=== PATIENT | female | born 1950 | race Caucasian/White ===

== ENCOUNTER 2017-02-12 16:21 | Inpatient (IN) | payer MEDICAID ==
[~2017-02-12] VITALS: Ht 165.1 cm; Wt 75.8 kg
[~2017-02-12 16:21] MED LIST: ASPI-1132 PO; BIMA12.5OS OP; CIP250 PO; COMB5OS OP; LISI-662 PO; METF500T4 PO; PROP40TA7 PO; RISP2 PO; SIMV-260 PO; TRAZ-144 PO; VITA400C19 PO
[2017-02-12] MEDS ORDERED: LISI1TAB11 PO (16:44)
[2017-02-12] MEDS ORDERED: RANI150T7 PO (16:44)
[2017-02-12] MEDS ORDERED: SERT100T12 PO (16:44)
[2017-02-12] MEDS ORDERED: QUET100T PO (16:44)
[2017-02-12] MEDS ORDERED: BENZ1TAB10 PO (16:44)
[2017-02-12] MEDS ORDERED: NIFE60TA71 PO (16:44)
[2017-02-12 16:47] LABS: GLUCOSE,POINT OF CARE 122 MG/DL (70-110)
[2017-02-12 17:34] LABS: ANION GAP 11 mmol/L (8-16); CALCIUM, TOTAL 9.7 mg/dL (8.8-10.5); CARBON DIOXIDE 25 mmol/L (22-29); CHLORIDE 92 mmol/L (98-107); GLOMERULAR FILTR. RATE CALC > 60 mL/min (>60); POTASSIUM 4.1 mmol/L (3.5-5.1); SODIUM SERUM 128 mmol/L (136-145); UREA NITROGEN, BLOOD 12 mg/dL (7-18)
[2017-02-12 17:40] LABS: ALANINE AMINOTRANSFERASE 16 U/L (12-78); ALBUMIN 4.5 g/dL (3.4-5.0); ASPARTATE AMINOTRANSFERASE 11 U/L (15-37); BILIRUBIN,TOTAL 0.3 mg/dL (0.1-1.0); TOTAL PROTEIN, SERUM 7.9 g/dL (6.4-8.2)
[2017-02-12 18:20] LABS: BASOPHILS % (AUTO) 0.3 % (0.0-2.0); EOSINOPHILS % (AUTO) 0.3 % (1.0-6.0); HEMATOCRIT 34.3 % (36-46); HEMOGLOBIN 11.5 g/dL (12.0-16.0); LYMPHOCYTES # (AUTO) 1.8 K/uL (1.0-4.8); LYMPHOCYTES % (AUTO) 27.9 % (22.0-44.0); MEAN CORPUSCULAR HEMOGLOBIN 31.1 pg (26.0-34.0); MEAN CORPUSCULAR HGB CONC 33.6 G/dL (31.0-37.0); MEAN CORPUSCULAR VOLUME 93 fL (80-100); MONOCYTES # (AUTO) 0.5 K/uL (0.1-1.0); MONOCYTES % (AUTO) 7.1 % (2.0-9.0); NEUTROPHILS # (AUTO) 4.1 K/uL (1.8-7.7); NEUTROPHILS % (AUTO) 64.4 % (40.0-70.0); PLATELET COUNT (AUTO) 249 K/uL (150-450); RED CELL DISTRIBUTION WIDTH 14.2 % (11.5-14.5); WHITE BLOOD COUNT (AUTO) 6.3 K/uL (4.5-11.0)
[2017-02-12] MEDS ORDERED: SODIUM CHLORIDE 1 GM TABLET PO ONE (20:30)
[2017-02-12 20:48] LABS: SALICYLATE 1.4 mg/dL (2.8-20.0)
[2017-02-12 20:54] LABS: ACETAMINOPHEN < 2 mcg/mL (10-30)
[2017-02-13 03:28] VITALS: BP 145/86
[2017-02-13] MEDS ORDERED: INFLUENZA VIRUS VACCINE QVS 2017-18 (3YR+)/PF 60 MCG/0.5 ML SYRINGE IM ONE (03:45)
[2017-02-13 05:52] LABS: GLUCOSE,POINT OF CARE 121 MG/DL (70-110)
[2017-02-13] MEDS ORDERED: ALBUTEROL SULFATE HFA 90 MCG/PUFF 8 GM INHALER IH PRN (07:30)
[2017-02-13] MEDS ORDERED: ACETAMINOPHEN 325 MG TABLET PO PRN (07:30)
[2017-02-13] MEDS ORDERED: PETROLATUM,WHITE 71 GM JELLY TP PRN (07:30)
[2017-02-13] MEDS ORDERED: ONDANSETRON HCL 4 MG TABLET PO PRN (07:30)
[2017-02-13] MEDS ORDERED: CloNIDine HCL 0.1 MG TABLET PO PRN (07:30)
[2017-02-13] MEDS ORDERED: BACITRACIN 28.4 GM OINTMENT TP PRN (07:30)
[2017-02-13] MEDS ORDERED: MAG HYDROX/AL HYDROX/SIMETH ES 30 ML SUSPENSION UDCUP PO PRN (07:30)
[2017-02-13] MEDS ORDERED: LOPERAMIDE HCL 2 MG CAPSULE PO PRN (07:30)
[2017-02-13] MEDS ORDERED: MAGNESIUM HYDROXIDE SUSPENSION 30 ML UDCUP PO PRN (07:30)
[2017-02-13] MEDS ORDERED: BENZOCAINE/MENTHOL LOZENGE [8 LOZENGES/PACKET] MM PRN (07:45)
[2017-02-13 08:47] VITALS: BP 111/78
[2017-02-13] MEDS: QUEtiapine FUMARATE 100 MG TABLET PO PRN ×2 (11:44→16:20)
[2017-02-13] MEDS: IBUPROFEN 600 MG TABLET PO PRN (11:44)
[2017-02-13 13:23] LABS: GLUCOSE,POINT OF CARE 140 MG/DL (70-110)
[2017-02-13] MEDS: LORazepam 2 MG TABLET PO PRN (16:14)
[2017-02-13] MEDS: QUEtiapine FUMARATE 200 MG TABLET PO SCH ×2 (20:27→21:41)
[2017-02-14 03:00] VITALS: BP 144/77
[2017-02-14] MEDS: LORazepam 2 MG TABLET PO PRN ×2 (03:10→08:58)
[2017-02-14] MEDS: QUEtiapine FUMARATE 100 MG TABLET PO PRN (03:10)
[2017-02-14 08:47] VITALS: BP 127/51
[2017-02-14 16:33] VITALS: BP 136/52
[2017-02-14] MEDS: MetFORMIN HCL 500 MG TABLET PO SCH (16:44)
[2017-02-14] MEDS: QUEtiapine FUMARATE 200 MG TABLET PO SCH (21:23)
[2017-02-15 02:00] VITALS: BP 138/79
[2017-02-15] MEDS: ZOLPIDEM TARTRATE 10 MG TABLET PO PRN (02:08)
[2017-02-15 06:12] LABS: GLUCOSE,POINT OF CARE 93 MG/DL (70-110)
[2017-02-15] MEDS: MetFORMIN HCL 500 MG TABLET PO SCH ×2 (06:47→17:22)
[2017-02-15] MEDS: FERROUS SULFATE 325 MG EC TABLET PO SCH ×2 (06:47→17:22)
[2017-02-15] MEDS: SODIUM CHLORIDE 1 GM TABLET PO SCH ×3 (10:21→16:19)
[2017-02-15 11:06] VITALS: BP 146/70
[2017-02-15 16:16] VITALS: BP 123/64
[2017-02-15] MEDS: QUEtiapine FUMARATE 100 MG TABLET PO PRN (16:19)
[2017-02-15] MEDS: QUEtiapine FUMARATE 200 MG TABLET PO SCH (20:35)
[2017-02-16] MEDS: MetFORMIN HCL 500 MG TABLET PO SCH ×2 (06:35→17:39)
[2017-02-16] MEDS: FERROUS SULFATE 325 MG EC TABLET PO SCH ×2 (06:35→17:38)
[2017-02-16 09:06] VITALS: BP 138/85
[2017-02-16 16:01] VITALS: BP 132/74
[2017-02-16] MEDS: QUEtiapine FUMARATE 200 MG TABLET PO SCH (19:58)
[2017-02-17 00:01] VITALS: BP 141/72
[2017-02-17] MEDS: QUEtiapine FUMARATE 100 MG TABLET PO PRN (00:02)
[2017-02-17 06:17] LABS: GLUCOSE,POINT OF CARE 117 MG/DL (70-110)
[2017-02-17] MEDS: FERROUS SULFATE 325 MG EC TABLET PO SCH ×2 (06:33→17:01)
[2017-02-17] MEDS: MetFORMIN HCL 500 MG TABLET PO SCH ×2 (06:33→17:01)
[2017-02-17] MEDS: LORazepam 2 MG TABLET PO PRN (09:29)
[2017-02-17 09:46] VITALS: BP 121/62
[2017-02-17 18:16] VITALS: BP 112/79
[2017-02-17 20:18] LABS: GLUCOSE,POINT OF CARE 91 MG/DL (70-110)
[2017-02-17] MEDS: QUEtiapine FUMARATE 200 MG TABLET PO SCH (21:13)
[2017-02-18 00:47] VITALS: BP 131/75
[2017-02-18] MEDS: QUEtiapine FUMARATE 100 MG TABLET PO PRN (00:56)
[2017-02-18 06:07] LABS: GLUCOSE COMMENT 1 Juice/Food/D50 Given; GLUCOSE,POINT OF CARE 151 MG/DL (70-110)
[2017-02-18] MEDS: MetFORMIN HCL 500 MG TABLET PO SCH ×2 (06:37→16:53)
[2017-02-18] MEDS: FERROUS SULFATE 325 MG EC TABLET PO SCH ×2 (06:37→16:53)
[2017-02-18] MEDS: QUEtiapine FUMARATE 100 MG TABLET PO SCH (08:26)
[2017-02-18 10:23] VITALS: BP 141/98
[2017-02-18 16:58] LABS: GLUCOSE COMMENT 1 Received Meds; GLUCOSE,POINT OF CARE 124 MG/DL (70-110)
[2017-02-18 17:00] VITALS: BP 128/76
[2017-02-18] MEDS: QUEtiapine FUMARATE 200 MG TABLET PO SCH (20:36)
[2017-02-19 00:40] VITALS: BP 152/100
[2017-02-19] MEDS: QUEtiapine FUMARATE 100 MG TABLET PO PRN (00:44)
[2017-02-19] MEDS: ZOLPIDEM TARTRATE 10 MG TABLET PO PRN (00:44)
[2017-02-19 06:07] LABS: GLUCOSE,POINT OF CARE 124 MG/DL (70-110)
[2017-02-19] MEDS: FERROUS SULFATE 325 MG EC TABLET PO SCH ×2 (06:58→17:39)
[2017-02-19] MEDS: MetFORMIN HCL 500 MG TABLET PO SCH ×2 (06:58→17:39)
[2017-02-19 08:58] VITALS: BP 123/97
[2017-02-19] MEDS: QUEtiapine FUMARATE 100 MG TABLET PO SCH (09:00)
[2017-02-19 16:05] VITALS: BP 151/114
[2017-02-19 17:23] LABS: GLUCOSE,POINT OF CARE 145 MG/DL (70-110)
[2017-02-19] MEDS: QUEtiapine FUMARATE 200 MG TABLET PO SCH (20:40)
[2017-02-19 23:55] VITALS: BP 130/78
[2017-02-20] MEDS: ZOLPIDEM TARTRATE 10 MG TABLET PO PRN (00:01)
[2017-02-20] MEDS: LORazepam 2 MG TABLET PO PRN (00:01)
[2017-02-20] MEDS ORDERED: DEXTROSE 50%-WATER 25 GM/50 ML SYRINGE IVP PRN (05:00)
[2017-02-20 05:48] LABS: GLUCOSE,POINT OF CARE 82 MG/DL (70-110)
[2017-02-20 06:48] VITALS: BP 137/80
[2017-02-20] MEDS: INSULIN ASPART 100 UNITS/ML SQ PRN (06:55)
[2017-02-20] MEDS: FERROUS SULFATE 325 MG EC TABLET PO SCH ×2 (07:03→17:41)
[2017-02-20] MEDS: MetFORMIN HCL 500 MG TABLET PO SCH ×2 (07:03→17:41)
[2017-02-20] MEDS: QUEtiapine FUMARATE 100 MG TABLET PO SCH (08:59)
[2017-02-20 09:56] VITALS: BP 148/73
[2017-02-20] MEDS ORDERED: QUEtiapine FUMARATE 100 MG TABLET PO ONE (10:30)
[2017-02-20] MEDS ORDERED: QUEtiapine FUMARATE 200 MG TABLET PO SCH (10:30)
[2017-02-20] MEDS: DIVALPROEX SODIUM 500 MG ER TABLET PO SCH ×2 (12:31→20:43)
[2017-02-20] MEDS: QUEtiapine FUMARATE 200 MG TABLET PO SCH (20:42)
[2017-02-21 00:15] VITALS: BP 118/77
[2017-02-21] MEDS: QUEtiapine FUMARATE 100 MG TABLET PO PRN ×2 (00:36→13:16)
[2017-02-21] MEDS: MetFORMIN HCL 500 MG TABLET PO SCH ×2 (06:38→16:13)
[2017-02-21] MEDS: FERROUS SULFATE 325 MG EC TABLET PO SCH ×2 (06:39→16:14)
[2017-02-21 08:03] LABS: GLUCOSE,POINT OF CARE 108 MG/DL (70-110)
[2017-02-21 08:52] VITALS: BP 134/79
[2017-02-21] MEDS: SODIUM CHLORIDE 1 GM TABLET PO SCH ×3 (09:08→16:13)
[2017-02-21] MEDS: DIVALPROEX SODIUM 500 MG ER TABLET PO SCH ×2 (09:08→20:59)
[2017-02-21] MEDS: QUEtiapine FUMARATE 200 MG TABLET PO SCH ×2 (09:08→20:59)
[2017-02-21 09:11] LABS: GLUCOSE COMMENT 1 FASTING; GLUCOSE,POINT OF CARE 124 MG/DL (70-110)
[2017-02-21] MEDS: LORazepam 2 MG TABLET PO PRN (13:16)
[2017-02-21 16:15] VITALS: BP 114/69
[2017-02-21] MEDS: IBUPROFEN 600 MG TABLET PO PRN (16:19)
[2017-02-21 16:42] LABS: GLUCOSE,POINT OF CARE 111 MG/DL (70-110)
[2017-02-21 21:07] LABS: GLUCOSE,POINT OF CARE 100 MG/DL (70-110)
[2017-02-22 01:29] VITALS: BP 131/78
[2017-02-22] MEDS: LORazepam 2 MG TABLET PO PRN (01:29)
[2017-02-22 05:38] LABS: GLUCOSE COMMENT 1 Received Meds; GLUCOSE,POINT OF CARE 104 MG/DL (70-110)
[2017-02-22] MEDS: INSULIN ASPART 100 UNITS/ML SQ PRN (06:48)
[2017-02-22] MEDS: FERROUS SULFATE 325 MG EC TABLET PO SCH (06:48)
[2017-02-22] MEDS: MetFORMIN HCL 500 MG TABLET PO SCH (06:48)
[2017-02-22 08:00] VITALS: BP 134/87
[2017-02-22] MEDS: QUEtiapine FUMARATE 200 MG TABLET PO SCH (09:24)
[2017-02-22] MEDS: DIVALPROEX SODIUM 500 MG ER TABLET PO SCH (09:24)
[2017-02-22] MEDS ORDERED: QUET200T PO (13:42)
[2017-02-22] MEDS ORDERED: DIVA500T52 PO ×2 (13:42)
[2017-02-22] MEDS ORDERED: FERR-89 PO (13:46)
== END 2017-02-22 14:30 | disposition home or self-care (01) | DRG 750 ==
LOC: EMS 16:24 → 3EI 02-13 00:33
DX: F25.1 Schizoaffective disorder, depressive type (principal); E87.8 Other disorders of electrolyte and fluid balance, not elsewhere classified; G20 Parkinson's disease; E87.1 Hypo-osmolality and hyponatremia; E11.65 Type 2 diabetes mellitus with hyperglycemia; E78.5 Hyperlipidemia, unspecified; K21.9 Gastro-esophageal reflux disease without esophagitis; I10 Essential (primary) hypertension; M19.90 Unspecified osteoarthritis, unspecified site; F79 Unspecified intellectual disabilities; F22 Delusional disorders; D64.9 Anemia, unspecified; Z79.899 Other long term (current) drug therapy; Z81.8 Family history of other mental and behavioral disorders; Z79.82 Long term (current) use of aspirin; Z28.21 Immunization not carried out because of patient refusal
CPT/HCPCS: 82962; 84295; 90471; 99285; G0480; G0481